=== PATIENT | female | born 1950 | race Caucasian/White ===

== ENCOUNTER 2020-04-12 14:14 | Emergency (ER) | payer MEDICARE ==
[2020-04-12 15:03] VITALS: O2SAT 99
[2020-04-12 15:33] VITALS: BP 145/80
--- NOTE | 2020-04-12 15:52 | XRAY ---
Indication: Pain following fall. Comparison: None 3 view left knee demonstrates mild osteopenia, minimal medial joint space narrowing, scattered vascular calcifications, and large medial subcutaneous venous varicosities. No other bony, articular, or soft tissue abnormalities.
--- NOTE | 2020-04-12 15:56 | ERPHSYRPT ---
- History of Present Illness Time Seen by Provider: 04/12/20 15:00 Source: patient Exam Limitations: no limitations Patient Subjective Stated Complaint: " I fell from standing a couple days ago and hurt my left knee. I was letting my dog out and I tripped and fell down onto my knee. It is really swollen and hurts when I bend it." Triage Nursing Assessment: Pt presents to ER with complaints of left knee pain from a fall that occurred a "couple days ago". Pt denies any other injuries, LOC, or other complaints. Left knee does appear swollen and has limited ROM. Pt walks with unsteady gait. Pt is alert and oriented x 3. Pt complains of 5/10 faby n in knee when bending knee. Pt respirations are even and unlabored. Breath sounds clear and equal throughout. Pt skin pink, warm, and dry. Noted varicose veins in bilateral legs, left leg appears worse or more profound varicose veins. Pt pulses are present and strong. Pt is pleasant and communicable with staff. Physician History: Is a 69-year-old female who presents with a left knee injury she has very bad varicose veins which her physicians have recommended vein stripping. She fell on some steps and complains of pain and swelling in the left knee. Method of Injury: fell Occurred: just prior to arrival Quality: throbbing Severity of Pain-Max: moderate Severity of Pain-Current: moderate Lower Extremities Pain: knee: left (Tender and swelling over the patella) Modifying Factors: Improves With: nothing Associated Symptoms: none Allergies/Adverse Reactions: No Known Drug Allergies Allergy (Verified 04/12/20 15:03) Home Medications: Aspirin EC 81 mg [Ecotrin 81 mg] 81 mg PO DAILY 01/11/12 [History] Benazepril HCl 5 mg PO DAILY 01/11/12 [History] Ezetimibe 10 mg [Zetia 10 MG] 10 mg PO DAILY 01/11/12 [History] Furosemide 20 mg [Lasix 20 mg] 20 mg PO DAILY 01/11/12 [History] Loratadine 10 mg [Claritin 10 mg] 10 mg PO DAILY 01/11/12 [History] Rosuvastatin Calcium [Crestor] 30 mg PO DAILY 01/11/12 [History] Hx Tetanus, Diphtheria Vaccination/Date Given: Yes Hx Influenza Vaccination/Date Given: Yes Hx Pneumococcal Vaccination/Date Given: Yes Immunizations Up to Date: Yes Travel Risk - International Travel Have you traveled outside of the country in past 3 weeks: No - Coronavirus Screening Close contact with a COVID-19 positive Pt in past 14-21 Days: No - Review of Systems Constitutional: No Fever, No Chills Eyes: No Symptoms Ears, Nose, & Throat: No Symptoms Respiratory: No Cough, No Dyspnea Cardiac: No Chest Pain, No Edema, No Syncope Abdominal/Gastrointestinal: No Abdominal Pain, No Nausea, No Vomiting, No Diarrhea Genitourinary Symptoms: No Dysuria Musculoskeletal: Joint Pain, Joint Swelling, No Back Pain, No Neck Pain Skin: No Rash Neurological: No Dizziness, No Focal Weakness, No Sensory Changes Psychological: No Symptoms Endocrine: No Symptoms All Other Systems: Reviewed and Negative - Past Medical History Pertinent Past Medical History: Yes Neurological History: No Pertinent History ENT History: No Pertinent History Cardiac History: Arrhythmia, High Cholesterol, Hypertension Respiratory History: No Pertinent History Endocrine Medical History: No Pertinent History Musculoskeletal History: Arthritis GI Medical History: No Pertinent History, Diverticulosis, Esophageal Disorder, Hemorrhoids History: No Pertinent History, Other Psycho-Social History: Depression Female Reproductive Disorders: No Pertinent History Other Medical History: bladder feels dropped, varicose veins - Past Surgical History Past Surgical History: Yes Neuro Surgical History: No Pertinent History Cardiac: No Pertinent History Respiratory: No Pertinent History Gastrointestinal: No Pertinent History Genitourinary: No Pertinent History Musculoskeletal: No Pertinent History Female Surgical History: Hysterectomy, Other Other Surgical History: tube and ovarie removed,-partial hysterectomy - Social History Smoking Status: Never smoker Exposure to second hand smoke: Yes Drug Use: none Patient Lives Alone: No - Female History Hx Now: No - Nursing Vital Signs Nursing Vital Signs: Initial Vital Signs Temperature 98.3 F 04/12/20 14:51 Pulse Rate 74 04/12/20 14:51 Respiratory Rate 16 04/12/20 14:51 Blood Pressure 151/79 04/12/20 14:51 O2 Sat by Pulse Oximetry 99 04/12/20 14:51 Pain Scale Pain Intensity 0 - Physical Exam General Appearance: alert Eyes, Ears, Nose, Throat Exam: moist mucous membranes Neck Exam: non-tender, supple Cardiovascular/Respiratory Exam: chest non-tender, normal breath sounds, regular rate/rhythm, no respiratory distress Gastrointestinal/Abdominal Exam: non-tender, guarding Back Exam: normal inspection, No vertebral tenderness Knees Exam: left knee: bone tenderness, pain, soft tissue tenderness, swelling, other (Both lower extremities in this patient have rather marked large varicose veins) Neuro/Tendon Exam: normal sensation, normal motor functions Mental Status Exam: alert, oriented x 3, cooperative Skin Exam: normal color, warm, dry SpO2: 99 - Course Nursing assessment & vital signs reviewed: Yes - Radiology Exams Knee X-ray Interpretation: Other (Left knee x-rays negative) Ordered Tests: Active Orders 24 hr Category Date Time Status KNEE (3 VIEWS) Stat Exams 04/12/20 15:39 Taken - Progress Progress: unchanged - Departure Departure Disposition: Home Clinical Impression: Contusion of left knee Condition: Stable Critical Care Time: No Referrals: MARTHA SNOW [Primary Care Provider] - Instructions: Knee Pain (DC) Prescriptions: Hydrocodone/APAP 5-325 Tab^^^ [[place] 5-325 Tablet^^^] 1 tab PO Q6HPRN PRN #10 tablet MDD 6 PRN Reason: Pain
[2020-04-12 15:57] VITALS: PULSE 70
== END 2020-04-12 16:08 | disposition home or self-care (01) ==
LOC: ED 14:14
DX: S80.02XA Contusion of left knee, initial encounter (principal); W19.XXXA Unspecified fall, initial encounter; Y93.9 Activity, unspecified; Y92.9 Unspecified place or not applicable
CPT/HCPCS: 73562; 99283